=== PATIENT | male | born 1965 | race African-American/Black ===

== ENCOUNTER 2016-11-05 03:28 | Emergency (ER) | payer BC ==
[~2016-11-05] VITALS: Ht 182.9 cm; Wt 99.8 kg
[2016-11-05] MEDS ORDERED: KETOROLAC TROMETHAMINE 60 MG/2 ML SYRINGE. IM ONE (04:00)
--- NOTE | 2016-11-05 04:09 | PHYS DOC ---
Past Medical History Past Medical History: No Pertinent History Past Surgical History: Appendectomy Alcohol Use: None Drug Use: None Adult General Chief Complaint Chief Complaint: MULTIPLE COMPLAINTS [facility] This is a 51 yo male presenting with subjective complaints of fever, chills, myalgias, with productive cough. Pt is speaking in complete sentences in no acute distress. Pt denies any history of health problems. He denies any chest pain or shortness of breath. He denies any nausea or vomiting. He denies any abdominal pain. Review of Systems Review of Systems Constitutional: Has fever, has chills [] Eyes: Denies change in visual acuity, redness, or eye pain [] HENT: Denies nasal congestion or sore throat [] Respiratory: Has cough, denies shortness of breath [] Cardiovascular: No additional information not addressed in HPI [] GI: Denies abdominal pain, nausea, vomiting, bloody stools or diarrhea [] : Denies dysuria or hematuria [] Musculoskeletal: Denies back pain or joint pain [] Integument: Denies rash or skin lesions [] Neurologic: Denies headache, focal weakness or sensory changes [] Endocrine: Denies polyuria or polydipsia [] Current Medications Current Medications Current Medications Medications (Trade) Dose Ordered Sig/Avelino Start Time Stop Time Status Last Admin Dose Admin Ketorolac Tromethamine (Toradol Im) 60 mg 1X ONCE 11/05/16 04:00 11/05/16 04:01 DC 11/05/16 04:17 60 MG Allergies Allergies Allergies Coded Allergies Type Severity Reaction Last Updated Verified No Known Drug Allergies 09/30/13 No Physical Exam Physical Exam Constitutional: Well developed, well nourished, no acute distress, non-toxic appearance. [] HENT: Normocephalic, atraumatic, bilateral external ears normal, oropharynx moist, no oral exudates, nose normal, tonsillar exudates. [] Eyes: PERRLA, EOMI, conjunctiva normal, no discharge. [] Neck: Normal range of motion, no tenderness, supple, no stridor. [] Cardiovascular:Heart rate regular rhythm, no murmur [] Lungs & Thorax: Bilateral breath sounds clear to auscultation [] Abdomen: Bowel sounds normal, soft, no tenderness, no masses, no pulsatile masses. [] Skin: Warm, dry, no erythema, no rash. [] Back: No tenderness, no CVA tenderness. [] Extremities: No tenderness, no cyanosis, no clubbing, ROM intact, no edema. [] Neurologic: Alert and oriented X 3, normal motor function, normal sensory function, no focal deficits noted. [] Psychologic: Affect normal, judgement normal, mood normal. [] Current Patient Data Vital Signs Vital Signs Date Time Temp Pulse Resp B/P Pulse Ox O2 Delivery O2 Flow Rate FiO2 11/05/16 03:39 97.7 96 18 98 Room Air 97.7 Lab Values Laboratory Tests Test 11/05/16 03:52 Influenza Type A Antigen Negative (NEGATIVE) Influenza Type B Antigen Negative (NEGATIVE) EKG EKG [] Radiology/Procedures Radiology/Procedures [] Course & Med Decision Making Course & Med Decision Making Pertinent Labs and Imaging studies reviewed. (See chart for details) This otherwise healthy 51-year-old male with subjective fever and chills with cough and myalgias will receive an IM injection of Toradol and have influenza and rapid strep swabs obtained. My exam is essentially unremarkable. There is no indication at this time perform any laboratory workup or imaging. Patient is given an IM injection of Toradol. His influenza and rapid strep swabs were negative. I'll be discharging home with strict instructions to continue taking Motrin and drink plenty of fluids. Also provide him a prescription for this process for his ongoing cough. I will instruct him to follow closely with his primary doctor in the next 2-3 days with his primary doctor. Ian Disclaimer Dragon Disclaimer This electronic medical record was generated, in whole or in part, using a voice recognition dictation system. Departure Departure Impression: Primary Impression: Cough Additional Impression: Pharyngitis Disposition: 01 HOME, SELF-CARE Admitting Physician: Other Condition: STABLE Referrals: NO PCP (PCP) Patient Instructions: Cough, Adult, [id number] Additional Instructions: Please take motrin as prescribed and take your tessalon perles for your cough. Continue to drink plenty of fluids. Return to the ER if you develop any worsening of your symptoms. Follow up with your primary doctor in the next 2-3 days. Scripts Benzonatate (Tessalon Perle)100 Mg [id number] Mg PO TID PRN COUGH #15 CAP Prov:NATA GARNETT DO 11/05/16 Ibuprofen 800 Mg [id number] Mg PO PRN Q6HRS PRN INFLAMMATION #20 TAB Prov:NATA GARNETT DO 11/05/16 Problem Qualifiers NATA GARNETT DO Nov 05, 2016 04:09
[2016-11-05 04:25] LABS: OBC FLU VALID
[2016-11-05] MEDS ORDERED: IBUP-1060 PO (04:45)
[2016-11-05] MEDS ORDERED: BENZ100C PO (04:45)
[2016-11-05 04:50] VITALS: BP 126/81
[2016-11-05 06:29] LABS: NEGATIVE OBC STREP NEG; POSITIVE OBC STREP POS
== END 2016-11-05 04:55 | disposition home or self-care (01) ==
LOC: ER 03:28
DX: J02.9 Acute pharyngitis, unspecified (principal); Z90.49 Acquired absence of other specified parts of digestive tract
CPT/HCPCS: 87070; 87804; 87880; 96372; 99284; J1885

== ENCOUNTER 2017-03-23 22:53 | Emergency (ER) | payer BC ==
[~2017-03-23] VITALS: Ht 182.9 cm; Wt 108.9 kg
[~2017-03-23 22:53] MED LIST: BENZ100C PO; IBUP-1060 PO
[2017-03-24 00:33] VITALS: BP 133/88
[2017-03-24] MEDS ORDERED: TRAM-48 PO (01:11)
[2017-03-24] MEDS ORDERED: METH-37 PO (01:11)
--- NOTE | 2017-03-24 01:12 | PHYS DOC ---
Past Medical History Past Medical History: No Pertinent History Past Surgical History: Appendectomy, Other Additional Past Surgical Histo: rt hand Alcohol Use: None Drug Use: None Adult General Chief Complaint Chief Complaint: LOWER BACK PAIN OR INJURY HPI HPI Patient is a 51 year old male who presents with 7 out of 10 bilateral low back pain that began today while lifting boxes. Patient denies falling, he states he believes he lifted the boxes wrong. Patient denies any pain radiating to bilateral lower extremities. Denies any loss of bowel/bladder function. Review of Systems Review of Systems Constitutional: Denies fever or chills [] Eyes: Denies change in visual acuity, redness, or eye pain [] HENT: Denies nasal congestion or sore throat [] : Denies dysuria or hematuria [] Musculoskeletal: back pain Integument: Denies rash or skin lesions [] Neurologic: Denies headache, focal weakness or sensory changes [] Endocrine: Denies polyuria or polydipsia [] Current Medications Current Medications Current Medications Medications (Trade) Dose Ordered Sig/Avelino Start Time Stop Time Status Last Admin Dose Admin Acetaminophen/ Hydrocodone Bitart (Lortab 5/325) 2 tab 1X ONCE 03/24/17 01:30 03/24/17 01:31 Cyclobenzaprine HCl (Flexeril) 10 mg 1X ONCE 03/24/17 01:30 03/24/17 01:31 Naproxen (Naprosyn) 500 mg 1X ONCE 03/24/17 01:30 03/24/17 01:31 Allergies Allergies Allergies Coded Allergies Type Severity Reaction Last Updated Verified No Known Drug Allergies 09/30/13 No Physical Exam Physical Exam Constitutional: Well developed, well nourished, no acute distress, non-toxic appearance. [] HENT: Normocephalic, atraumatic, bilateral external ears normal, oropharynx moist, no oral exudates, nose normal. [] Abdomen: Bowel sounds normal, soft, no tenderness, no masses, no pulsatile masses. [] Skin: Warm, dry, no erythema, no rash. [] Back: Diffuse paraspinal muscle tenderness to bilateral low lumbar region, no midline lumbar spine tenderness, no CVA tenderness. Negative bilateral straight leg raises Extremities: No tenderness, no cyanosis, no clubbing, ROM intact, no edema. [] Neurologic: Alert and oriented X 3, normal motor function, normal sensory function, no focal deficits noted. [] Psychologic: Affect normal, judgement normal, mood normal. [] Current Patient Data Vital Signs Vital Signs Date Time Temp Pulse Resp B/P (MAP) Pulse Ox O2 Delivery O2 Flow Rate FiO2 03/24/17 00:33 98.0 73 18 99 Room Air 98.0 EKG EKG [] Radiology/Procedures Radiology/Procedures [] Course & Med Decision Making Course & Med Decision Making Pertinent Labs and Imaging studies reviewed. (See chart for details) Patient is in the ED with bilateral lumbar strain after lifting boxes wrong, no cauda equina syndrome noted during assessment. Patient will be discharged with Robaxin and Ultram. Follow-up with PCP in 1-2 weeks. Heat recommended to his lumbar spine. Provided return precautions and discharged in stable condition. Dragon Disclaimer Dragon Disclaimer This electronic medical record was generated, in whole or in part, using a voice recognition dictation system. Departure Departure Impression: Primary Impression: Lumbosacral strain Disposition: HOME, SELF-CARE Condition: STABLE Referrals: NO PCP (PCP) Follow-up with your doctor in 1-2 weeks. Patient Instructions: Lumbosacral Strain Additional Instructions: You were seen for muscle strain of the lumbar spine. Do not lift anything greater than a gallon of milk for the next 3-7 days. Apply heat or ice to the back. Follow-up with your doctor in 1-2 weeks. Come back to the ED if symptoms worsen. Scripts Methocarbamol (ROBAXIN) 500 Mg Tablet 1 TAB PO TID, #30 TAB Prov: CARRINGTON EDGAR APRN 03/24/17 Tramadol Hcl (ULTRAM) 50 Mg Tablet 1 TAB PO Q6HRS, #30 TAB Prov: CARRINGTON EDGAR APRN 03/24/17 Problem Qualifiers Primary Impression: Lumbosacral strain Encounter type: initial encounter Qualified Codes: S39.012A - Strain of muscle, fascia and tendon of lower back, initial encounter CARRINGTON EDGAR APRN Mar 24, 2017 01:12
[2017-03-24] MEDS ORDERED: NAPROXEN 500 MG TABLET PO ONE (01:30)
[2017-03-24] MEDS ORDERED: CYCLOBENZAPRINE 10 MG TABLET. PO ONE (01:30)
[2017-03-24] MEDS ORDERED: HYDROcodone/APAP 5/325MG 1 TAB TABLET PO ONE (01:30)
== END 2017-03-24 01:24 | disposition home or self-care (01) ==
LOC: ER 22:53
DX: S39.012A Strain of muscle, fascia and tendon of lower back, initial encounter (principal); X50.0XXA Overexertion from strenuous movement or load, initial encounter; Y93.89 Activity, other specified; Y99.8 Other external cause status; Y92.89 Other specified places as the place of occurrence of the external cause
CPT/HCPCS: 99284

== ENCOUNTER 2017-03-30 22:13 | Emergency (ER) | payer BC ==
[~2017-03-30 22:13] MED LIST changes: +METH-37 PO; +TRAM-48 PO
[2017-03-30 22:14] VITALS: BP 130/76
[2017-03-30] MEDS ORDERED: NAPR500T8 PO (22:51)
[2017-03-30] MEDS ORDERED: DIAZ5TAB PO (22:51)
[2017-03-30] MEDS ORDERED: ACET-704 PO (22:51)
--- NOTE | 2017-03-30 22:51 | PHYS DOC ---
Past Medical History Past Medical History: No Pertinent History Past Surgical History: Appendectomy, Other Additional Past Surgical Histo: rt hand Alcohol Use: None Drug Use: None Adult General Chief Complaint Chief Complaint: LOWER BACK PAIN OR INJURY HPI HPI Patient is a 51 year old male who presents with ongoing bilateral lumbar pain that began on March 24, 2017 after lifting boxes wrong. Patient was seen in the ED on that day and discharged with Ultram and Robaxin. He states the pain medicine is not helping. Patient denies any new injuries. Denies any pain radiating to bilateral upper extremities. Patient denies any loss of bowel or bladder function. He states he missed work today and would like a note for work. This is the same information he stated it last time that he missed work and would give him a note for work. Review of Systems Review of Systems Constitutional: Denies fever or chills [] Musculoskeletal: back pain Integument: Denies rash or skin lesions [] Neurologic: Denies headache, focal weakness or sensory changes [] Allergies Allergies Allergies Coded Allergies Type Severity Reaction Last Updated Verified No Known Drug Allergies 09/30/13 No Physical Exam Physical Exam Constitutional: Well developed, well nourished, no acute distress, non-toxic appearance. [] Abdomen: Bowel sounds normal, soft, no tenderness, no masses, no pulsatile masses. [] Skin: Warm, dry, no erythema, no rash. [] Back: No tenderness, no CVA tenderness. [] Extremities: No tenderness, no cyanosis, no clubbing, ROM intact, no edema. [] Neurologic: Alert and oriented X 3, normal motor function, normal sensory function, no focal deficits noted. [] Psychologic: Affect normal, judgement normal, mood normal. [] EKG EKG [] Radiology/Procedures Radiology/Procedures [] Course & Med Decision Making Course & Med Decision Making Pertinent Labs and Imaging studies reviewed. (See chart for details) Patient is in the ED with ongoing low back pain that began on March 24, 2017 after lifting boxes wrong. He is also requesting a note for work for today. He was in the ED on March 24, 2017 with the exact same story and requesting a note for work and pain medicine. We sent you home with Robaxin and Ultram. He states it's not helping. Provided this patient a primary care doctor's list including a pain clinic and neurosurgeon. Discharged with naproxen, Valium and Tylenol 3. Provided a note for work. Informed patient we will not be giving him any pain medicine if he keeps coming for chronic pain. Ian Disclaimer Ian Disclaimer This electronic medical record was generated, in whole or in part, using a voice recognition dictation system. Departure Departure Impression: Primary Impression: Low back pain Disposition: HOME, SELF-CARE Condition: STABLE Referrals: NO PCP (PCP) Follow-up with a doctor from the list provided as soon as you can Patient Instructions: Back Pain, Adult Additional Instructions: You were seen for ongoing low back pain. We highly recommend you establish care with a primary care doctor from the list provided as soon as you can. The emergency room is not the best place to come for chronic back pain. You can follow up with the pain clinic primary care doctor or neurosurgeon. We provided you paperwork with contact information. Scripts Acetaminophen With Codeine (TYLENOL WITH CODEINE #3 TABLET) 1 Each Tablet 1 TAB PO PRN Q6HRS Y for PAIN, #30 TAB Prov: CARRINGTON EDGAR APRN 03/30/17 Naproxen (NAPROXEN) 500 Mg Tablet. 1 TAB PO BID, #20 TAB 0 Refills Prov: CARRINGTON EDGAR APRN 03/30/17 Diazepam (VALIUM) 5 Mg Tablet 5 MG PO TID, #15 TAB Prov: CARRINGTON EDGAR APRN 03/30/17 Problem Qualifiers Primary Impression: Low back pain Chronicity: acute Back pain laterality: bilateral Sciatica presence: with sciatica Sciatica laterality: bilateral sciatica Qualified Codes: M54.42 - Lumbago with sciatica, left side; M54.41 - Lumbago with sciatica, right side CARRINGTON EDGAR APRN Mar 30, 2017 22:51
== END 2017-03-30 23:26 | disposition home or self-care (01) ==
LOC: ER 22:13
DX: M54.41 Lumbago with sciatica, right side (principal); M54.42 Lumbago with sciatica, left side; Z90.49 Acquired absence of other specified parts of digestive tract
CPT/HCPCS: 99283

== ENCOUNTER 2017-05-03 04:33 | Emergency (ER) | payer BC ==
[~2017-05-03] VITALS: Ht 182.9 cm; Wt 112.0 kg
[~2017-05-03 04:33] MED LIST changes: +ACET-704 PO; +DIAZ5TAB PO; +NAPR500T8 PO
[2017-05-03 04:35] VITALS: BP 145/99
--- NOTE | 2017-05-03 08:23 | ED.ADGEN ---
Past Medical History Past Medical History: Other Additional Past Medical Histor: CHRONIC BACK PAIN Past Surgical History: Appendectomy, Other Additional Past Surgical Histo: rt hand Alcohol Use: None Drug Use: None Adult General Chief Complaint Chief Complaint: MEDICATION REFILL HPI HPI Patient is a 52 year old [man, history of chronic low back pain. Patient denies any history of injury, has been seen in the emergency department several times for similar complaints. Patient states that he has use of the medications he was given during a previous visits to the emergency department about a month ago, he states that he would like to have her refill of medication. He states that he did not previously primary care provider, does have an appointment to follow-up with primary care provider in 2 days for general medical care and evaluation. Denies any weakness, numbness, tingling, chest pain, shortness breath, nausea or vomiting, difficulties with bowel or bladder control. No fevers or chills, no recent travel or surgery, no history of drug use. Describes the pain is located in the left and right side of his lower back, worse with activity and motion. Patient ambulating without difficulty upon entering the emergency department. He did drive himself to the emergency department. Patient has not taken anything for pain prior to coming to the ED. Review of Systems Review of Systems Constitutional: Denies fever or chills. [] Eyes: Denies change in visual acuity. [] HENT: Denies nasal congestion or sore throat. [] Respiratory: Denies cough or shortness of breath. [] Cardiovascular: Denies chest pain or edema. [] GI: Denies abdominal pain, nausea, vomiting, bloody stools or diarrhea. [] : Denies dysuria. [] Musculoskeletal: Complaining of chronic low back pain, no joint pain. Integument: Denies rash. [] Neurologic: Denies headache, focal weakness or sensory changes. [] Endocrine: Denies polyuria or polydipsia. [] Lymphatic: Denies swollen glands. [] Psychiatric: Denies depression or anxiety. [] Allergies Allergies Allergies Coded Allergies Type Severity Reaction Last Updated Verified No Known Drug Allergies 09/30/13 No Physical Exam Physical Exam Constitutional: Well developed, well nourished, no acute distress, non-toxic appearance. [] HENT: Normocephalic, atraumatic, bilateral external ears normal, oropharynx moist, no oral exudates, nose normal. [] Eyes: PERRLA, EOMI, conjunctiva normal, no discharge. [] Neck: Normal range of motion, no tenderness, supple, no stridor. [] Cardiovascular:Heart rate regular rhythm, no murmur, S1, S2, rubs or gallops. [] Lungs & Thorax: Bilateral breath sounds clear to auscultation, no wheezing, rhonchi, rales. No chest wall crepitus or tenderness. [] Abdomen: Bowel sounds normal, soft, no tenderness, no masses, no pulsatile masses. [] Skin: Warm, dry, no erythema, no rash. [] Back: No midline tenderness, no step-offs or deformities, patient complaining of tenderness palpation of the paraspinal muscles the lumbar region and both left and right back, no tissue tension noted, no spasm, no lesions, or other acute abnormality is identified. No CVA tenderness. [] Extremities: No tenderness, no cyanosis, no clubbing, ROM intact, no edema. [] Neurologic: Alert and oriented X 3, normal motor function, normal sensory function, no focal deficits noted. [] Psychologic: Affect normal, judgement normal, mood normal. [] Current Patient Data Vital Signs Vital Signs Date Time Temp Pulse Resp B/P (MAP) Pulse Ox O2 Delivery O2 Flow Rate FiO2 05/03/17 04:35 98.6 78 18 95 Room Air 98.6 EKG EKG Not indicated. [] Radiology/Procedures Radiology/Procedures Not indicated. [] Course & Med Decision Making Course & Med Decision Making Pertinent Labs and Imaging studies reviewed. (See chart for details) Patient well-appearing, with vital signs within normal limits, complaining of chronic back pain, requesting medication refill. Patient denies any recent injuries, or other concerning history, and examination is neurologically intact , without any focal findings identified. I did discuss with patient that the emergency department is not an appropriate place for medication refills, for recommend he follow up with a primary care provider in the appointment that he is scheduled for next week. Did discuss concerning symptoms that prompt return, and use [id number] medications as as anti-inflammatory medications and acetaminophen, use of heating pads, and also back exercises. Patient is ambulating without difficulty in the ED, discharged from the emergency department in stable condition with plan and precautions as above. Ian Disclaimer Dragon Disclaimer This electronic medical record was generated, in whole or in part, using a voice recognition dictation system. Departure Impression: Primary Impression: Low back pain Disposition: 01 HOME, SELF-CARE Condition: GOOD KRUNAL CONTRERAS DO May 03, 2017 08:23
== END 2017-05-03 05:08 | disposition home or self-care (01) ==
LOC: ER 04:33
DX: M54.5 Low back pain (principal); G89.29 Other chronic pain
CPT/HCPCS: 99281

== ENCOUNTER 2017-10-14 05:39 | Emergency (ER) | payer SELFPAY, BC | END 2017-10-14 06:15 | disposition home or self-care (01) | LOC: ER 05:39 | DX: M54.5 Low back pain (principal); G89.29 Other chronic pain; Z87.891 Personal history of nicotine dependence; X58.XXXA Exposure to other specified factors, initial encounter; Y93.67 Activity, basketball; Y92.89 Other specified places as the place of occurrence of the external cause; Y99.8 Other external cause status | CPT/HCPCS: 99283 ==

== ENCOUNTER 2017-12-06 04:52 | Emergency (ER) | payer BC ==
[2017-12-06] MEDS ORDERED: ONDANSETRON PF 4 MG/2 ML VIAL. (05:23)
[2017-12-06] MEDS: ONDANSETRON PF 4 MG/2 ML VIAL. IV (05:35)
[2017-12-06] MEDS: IV NORMAL SALINE 1000ML BAG 1,000 ML IV ×2 (05:35→06:43)
[2017-12-06 06:01] LABS: BILIRUBIN,URINE NEGATIVE (NEG); CLARITY,URINE CLEAR; COLOR,URINE YELLOW; GLUCOSE,URINE NEGATIVE (NEG); NITRITE,URINE NEGATIVE (NEG); PROTEIN,URINE NEGATIVE (NEG-TRACE); UROBILINOGEN,URINE 0.2 mg/dL (0.2 mg/dL)
[2017-12-06 06:14] LABS: BACTERIA,URINE 0 /HPF (0-FEW); RBC,URINE RARE /HPF (0-2); SQUAMOUS EPITHELIAL CELL,UR MANY /LPF; WBC,URINE RARE /HPF (0-4)
[2017-12-06 06:38] LABS: ADD MAN DIFF? NO
[2017-12-06 06:44] LABS: BASO % 0 % (0-3); EOS # 0.1 x10^3/uL (0.0-0.7); EOS % 1 % (0-3); HEMATOCRIT 47.5 % (39.0-53.0); HEMOGLOBIN 15.9 g/dL (13.0-17.5); LYMPH # 0.5 x10^3/uL (1.0-4.8); LYMPH % 5 % (24-48); MEAN CORPUSCULAR HEMOGLOBIN 31 pg (25-35); MEAN CORPUSCULAR HGB CONC 34 g/dL (31-37); MEAN CORPUSCULAR VOLUME 93 fL (79-100); MONO # 0.5 x10^3/uL (0.0-1.1); MONO % 6 % (0-9); NEUT # 8.1 x10^3uL (1.8-7.7); NEUT % 88 % (31-73); PLATELET COUNT 252 x10^3/uL (140-400); RED CELL DISTRIBUTION WIDTH 13.4 % (11.5-14.5); WHITE BLOOD COUNT 9.1 x10^3/uL (4.0-11.0)
[2017-12-06 06:54] LABS: ANION GAP 9 (6-14); BLOOD UREA NITROGEN 17 mg/dL (8-26); BUN/CREATININE RATIO 14 (6-20); CARBON DIOXIDE 30 mmol/L (21-32); CHLORIDE 102 mmol/L (98-107); CREATININE 1.2 mg/dL (0.7-1.3); GFR 77.2; GLUCOSE 127 mg/dL (70-99); POTASSIUM 4.2 mmol/L (3.5-5.1); SODIUM 141 mmol/L (136-145)
[2017-12-06 07:04] LABS: ALBUMIN 3.9 g/dL (3.4-5.0); ALBUMIN/GLOBULIN RATIO 0.9 (1.0-1.7); ALK PHOS 55 U/L (46-116); ALT (SGPT) 36 U/L (16-63); AST (SGOT) 23 U/L (15-37); LIPASE 49 U/L (73-393); TOTAL BILIRUBIN 0.8 mg/dL (0.2-1.0); TOTAL PROTEIN 8.4 g/dL (6.4-8.2)
== END 2017-12-06 07:40 | disposition home or self-care (01) ==
LOC: ER 04:52
DX: R11.2 Nausea with vomiting, unspecified (principal); R19.7 Diarrhea, unspecified; R10.9 Unspecified abdominal pain; G89.29 Other chronic pain; Z90.49 Acquired absence of other specified parts of digestive tract
CPT/HCPCS: 36415; 80053; 81001; 83690; 85025; 96361; 96374; 99284-25; J2405; J7030

== ENCOUNTER 2020-04-27 13:26 | Emergency (ER) | payer OTHER ==
[~2020-04-27] VITALS: Ht 188 cm; Wt 114.0 kg
[~2020-04-27 13:26] MED LIST changes: +NAPR-683 PO; +ONDA4TAB10 SL; +ORPH100T PO
[2020-04-27 13:36] VITALS: BP 138/84
[2020-04-27] MEDS ORDERED: KETOROLAC 60 MG/2 ML VIAL. IM ONE (14:00)
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
[2020-04-27] MEDS ORDERED: IBUPROFEN 200 MG TABLET. PO ONE (14:30)
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
== END 2020-04-27 14:36 | disposition home or self-care (01) ==
LOC: ER 13:26
DX: S39.012A Strain of muscle, fascia and tendon of lower back, initial encounter (principal); V43.52XA Car driver injured in collision with other type car in traffic accident, initial encounter; G89.29 Other chronic pain; Z87.891 Personal history of nicotine dependence; Y92.488 Other paved roadways as the place of occurrence of the external cause; Y93.89 Activity, other specified; Y99.8 Other external cause status
CPT/HCPCS: 72100; 99283

== ENCOUNTER 2021-07-05 00:14 | Emergency (ER) | payer OTHER ==
[~2021-07-05] VITALS: Ht 182.9 cm; Wt 110.8 kg
[2021-07-05 01:02] VITALS: BP 133/79
--- NOTE | 2021-07-05 01:22 | PHYS DOC ---
Past Medical History Past Medical History: No Pertinent History, Other Additional Past Medical Histor: CHRONIC BACK PAIN Past Surgical History: Appendectomy, Other Additional Past Surgical Histo: rt hand, dental extraction Smoking Status: Never Smoker Alcohol Use: None Drug Use: None General Adult EDM: Chief Complaint: DENTAL PROBLEM HPI: HPI: Patient is a 56 year old male who had a dental extraction procedure done on his top right molar (approximately tooth #1) presents the emergency department with bleeding from his extraction site for the last several hours. He tried to get in contact with his dental office but it was closed for the day. He has tried packing the area but has noticed continued bleeding. He denies any further trauma or complaints. He is on any blood thinners. The patient denies nausea, vomiting, fever, chills, chest pain, shortness of breath, or any other complaints. Review of Systems: Review of Systems: Constitutional: Negative except what was mentioned in HPI. Eyes: Negative except what was mentioned in HPI. HENT: Negative except what was mentioned in HPI. Respiratory: Negative except what was mentioned in HPI. Cardiovascular: Negative except what was mentioned in HPI. GI: Negative except what was mentioned in HPI. : Negative except what was mentioned in HPI. Musculoskeletal: Negative except what was mentioned in HPI. Heart Score: C/O Chest Pain: No Allergies: Allergies: Allergies Coded Allergies Type Severity Reaction Last Updated Verified No Known Drug Allergies 09/30/13 No Physical Exam: PE: Constitutional: No acute distress, non-toxic appearance. HENT: There is copious blood around the mouth. Upon further inspection, surgical site around tooth #1 is actively bleeding once clot and packing is removed. Eyes: PERRLA, EOMI, conjunctiva normal, no discharge. Neck: Normal range of motion, supple, no stridor. Cardiovascular: Heart rate regular rhythm. 2+ radial pulses Lungs & Thorax: No respiratory distress, symmetrical expansion. Skin: Warm, dry. Extremities: No tenderness, no cyanosis, ROM intact, no edema. Psychologic: Affect normal, judgment normal, mood normal. Current Patient Data: Vital Signs: Vital Signs Date Time Temp Pulse Resp B/P (MAP) Pulse Ox O2 Delivery O2 Flow Rate FiO2 07/05/21 01:02 62 133/79 (97) 96 Room Air 07/05/21 00:30 98.1 16 98.1 Course & Med Decision Making: Course & Med Decision Making Surgical site was packed with 4 x 4 gauze and observed for 20 minutes, there is no active bleeding after this. Patient was instructed to leave this packing in place and to call his dental office in the morning. He was given further packing supplies for home and advised for oral rest for the next several hours until he can make contact with his dentist. He was discharged in improved condition with no active bleeding. Departure Departure Impression: Primary Impression: Postprocedural hemorrhage due to complication of oral surgery Disposition: 01 HOME / SELF CARE / HOMELESS Condition: IMPROVED Referrals: KAUSHIK YANES MD (PCP) Patient Instructions: Dental Extraction, Care After Additional Instructions: You were seen in the emergency department for oral bleeding, please make contact with your dental office tomorrow morning for further instructions regarding your dental extraction. Continue to pack the area as appropriate if you bleed again, please leave this gauze in overnight and do not disturb the clot. Bleeding is normal after a tooth extraction. However it should stop later that day. A non-wisdom tooth will typically ooze blood for under an hour, then form a clot. An upper wisdom tooth may ooze blood for several hours, even into the evening. However, it is important to understand that gauze will frequently have blood on it even though the bleeding has stopped. This is because the gauze picks up blood from the blood clot. There are several hassan steps to facilitating clot formation: 1. Apply firm (slightly uncomfortable) pressure with gauze. The gauze must be directly over/under the extraction site. Pressure should be applied for 15 minutes continuously. The gauze must be the proper size to apply pressure (not too small), while enabling the mouth to be closed most of the way so the jaw doesnt get fatigued (not too big). 2. Bleeding has stopped doesnt mean there is no more blood in the mouth or saliva. It is normal to have some blood in saliva for a few days after an extraction. The hassan is blood is not welling up or dripping and making it difficult to talk, eat, breathe. Often the gauze will be somewhat pink but not d eeply red and saturated. If it is somewhat pink this indicates bleeding is well controlled. 3. Maintain the blood clot. Once a clot has formed it is important to not disrupt it. This is accomplished by avoiding vigorous rinsing, sucking through a straw, or spitting. If bleeding resumes you can apply pressure again and the clot will re-form. 4. Black tea bag. Dipping a black tea bag in cold water, rolling it in a gauze or paper towel, and applying over an extraction socket can facilitate clot formation due to the tannin in tea. 5. If you run out of gauze you may use a paper towel cut to appropriate size. STANLEY PRESCOTT DO Jul 05, 2021 01:22
== END 2021-07-05 01:24 | disposition home or self-care (01) ==
LOC: ER 00:14
DX: L76.22 Postprocedural hemorrhage of skin and subcutaneous tissue following other procedure (principal); G89.29 Other chronic pain
CPT/HCPCS: 99281